=== PATIENT | male | born 2000 | race Caucasian/White ===

== ENCOUNTER 2021-11-19 10:27 | Emergency (ER) | payer OTHER ==
[2021-11-19 11:54] LABS: INFLUENZA A NAA NEGATIVE (NEGATIVE)
[2021-11-19 12:05] LABS: CORONAVIRUS 2019 SARS-COV-2 POSITIVE (NEGATIVE)
[2021-11-19] MEDS ORDERED: ONDANSETRON ODT4 MG PO (13:19)
== END 2021-11-19 13:30 | disposition home or self-care (01) ==
LOC: FER 10:27
PROVIDERS: Emergency Medicine
DX: U07.1 COVID-19 (principal); F17.290 Nicotine dependence, other tobacco product, uncomplicated
CPT/HCPCS: 99284; U0002